=== PATIENT | female | born 1980 | race Caucasian/White ===

== ENCOUNTER 2016-05-20 18:07 | Inpatient (IN) | payer OTHER ==
[~2016-05-20] VITALS: Ht 154.9 cm; Wt 67.9 kg
[~2016-05-20 18:07] MED LIST: ADVIL200 M1 PO; AMITRIPTYLINE H75 MG PO; ATARAX,VISTARIL25 MG PO; Ambien PO; BACTRIM,SEPT1 TABLET PO; BACTROBAN NASAL1 G1 BOTH NARES; BENADRYL50 MG PO; CALCIUM500 M4 PO; CHANTIX; CHANTIX1 MG PO; CIPRO500 MG PO; CIPROFLOXACIN H10 ML BOTH EYES; DOXYCYCLINE HY100 MG PO; EFFEXOR37.5 MG PO; ENDOCET 5-3251 EACH PO; FIORICET,ESG1 TABLET PO; KEFLEX500 MG PO; MACROBID100 MG PO; METHADONE10 MG PO; MOBIC7.5 MG PO; MORPHINE SULFAT30 M2 PO; OXAYDO5 MG PO; PANTOPRAZOLE SO40 MG PO; PEPCID20 MG PO; PERCOCET 10/1 TABLET PO; PERCOCET 5/31 TABLET PO; PROMETHAZINE HC25 M1 PO; PYRIDIUM200 MG PO; SALINE FOR SEN MC; VIBRAMYCIN100 MG PO; ZOFRAN4 MG PO
[2016-05-20 19:45] LABS: HEMATOCRIT 38.5 % (36.0-46.0); MCH 30.8 PG (29.0-34.0); MCHC 33.5 G/DL (30.0-36.0); MCV 91.9 FL (83-99); MEAN PLAT.VOLUME 9.8 uM^3 (9.5-12.4); PLATELET COUNT 239 K/uL (156-360); RBC DIS.WIDTH-CV 12.6 % (11.8-14.6); RBC DIS.WIDTH-SD 41.9 % (39-53); RED BLOOD COUNT 4.19 M/uL (3.80-5.20); WHITE BLOOD COUNT 5.8 K/uL (4.1-10.2)
[2016-05-20 19:56] LABS: CHLORIDE 104 mEq/L (99-109); POTASSIUM 3.9 mEq/L (3.7-5.4); SODIUM 138 mEq/L (136-147)
[2016-05-20 19:58] LABS: GLUCOSE 101 mg/dL (70-99)
[2016-05-20 19:59] LABS: ANION GAP 7 MEQ/L (2-14)
[2016-05-20 20:00] LABS: TOTAL BILIRUBIN 0.2 mg/dL (0.0-1.0)
[2016-05-20 20:01] LABS: SERUM ETHYL ALCOHOL < 10 mg/dL
[2016-05-20 20:02] LABS: ALKALINE PHOSPHATASE 73 IU/L (3-129); GFR ESTIMATE (CALCULATED) > 59 mL/min/
[2016-05-20 20:03] LABS: UREA NITROGEN (BUN) 12 mg/dL (9-23)
[2016-05-20 20:25] LABS: ADD MIUA? NO; BILIRUBIN NEGATIVE; BLOOD NEGATIVE; COLOR YELLOW ((YELLOW)); GLUCOSE (STRIP) NEGATIVE; KETONES NEGATIVE; LEUKOCYTES NEGATIVE; NITRITE NEGATIVE; PROTEIN (STRIP) 30; SPECIFIC GRAVITY 1.023 (1.000-1.030); UROBILINOGEN 0.2 MG/DL (0.2-1.0)
[2016-05-20 20:42] LABS: AMPHETAMINE NEGATIVE (500 ng/mL); BARBITURATES NEGATIVE (200 ng/mL); BENZODIAZEPINES NEGATIVE (150 ng/mL); COCAINE NEGATIVE (150 ng/mL); INTERNAL CONTROLS VALID? YES; METHADONE NEGATIVE (200 ng/mL); METHAMPHETAMINE NEGATIVE (500 ng/mL); OPIATES (MORPHINE) PRESUMPTIVE POSITIVE (100 ng/mL); OXYCODONE PRESUMPTIVE POSITIVE (100 ng/mL); PHENCYCLIDINE NEGATIVE (25 ng/mL); PROPOXYPHENE NEGATIVE (300 ng/mL); THC CANNABINOIDS NEGATIVE (50 ng/mL); TRICYCLIC ANTIDEPRESSANTS NEGATIVE (300 ng/mL)
[2016-05-20 20:43] LABS: ADD MEDTOX COMMENT Y
[2016-05-20 21:40] VITALS: BP 141/60
[2016-05-20 21:42] VITALS: BP 141/60
[2016-05-21] MEDS ORDERED: KADIAN60 MG PO (04:19)
[2016-05-21] MEDS ORDERED: OXYCODONE HCL E30 MG PO (04:22)
[2016-05-21] MEDS ORDERED: NEURONTIN600 MG PO (04:23)
[2016-05-21 08:07] VITALS: BP 109/55
[2016-05-21 15:55] VITALS: BP 116/66
[2016-05-22 08:17] VITALS: BP 106/55
[2016-05-22 15:32] VITALS: BP 103/57
[2016-05-23 07:47] VITALS: BP 106/58
[2016-05-23] MEDS ORDERED: DULOXETINE HCL30 MG PO (09:38)
== END 2016-05-23 10:41 | disposition home or self-care (01) | DRG 885 ==
LOC: EME 18:07 → 1WEST 20:53 → EDOF 20:53 → 1WEST 21:32
PROVIDERS: Emergency Medicine
DX: F33.9 Major depressive disorder, recurrent, unspecified (principal); R45.851 Suicidal ideations; F60.9 Personality disorder, unspecified; G89.29 Other chronic pain; M48.00 Spinal stenosis, site unspecified; M19.90 Unspecified osteoarthritis, unspecified site; M47.9 Spondylosis, unspecified; M79.7 Fibromyalgia; N80.9 Endometriosis, unspecified; F17.210 Nicotine dependence, cigarettes, uncomplicated; Z91.5 Personal history of self-harm; Z86.74 Personal history of sudden cardiac arrest; Z88.0 Allergy status to penicillin; Z88.2 Allergy status to sulfonamides
CPT/HCPCS: 80053; 81003; 84999; 85027; 90839; 97165 GO; 99281; 99285; G0480; Q0177

== ENCOUNTER 2016-07-30 14:28 | Emergency (ER) | payer OTHER ==
[~2016-07-30] VITALS: Ht 154.9 cm; Wt 58.1 kg
[~2016-07-30 14:28] MED LIST changes: +DULOXETINE HCL30 MG PO; +KADIAN60 MG PO; +NEURONTIN600 MG PO; +OXYCODONE HCL E30 MG PO
[2016-07-30 15:46] LABS: HEMATOCRIT 43.2 % (36.0-46.0); MCH 30.9 PG (29.0-34.0); MCHC 34.5 G/DL (30.0-36.0); MCV 89.6 FL (83-99); MEAN PLAT.VOLUME 11.6 uM^3 (9.5-12.4); PLATELET COUNT 131 K/uL (156-360); RBC DIS.WIDTH-CV 12.6 % (11.8-14.6); RBC DIS.WIDTH-SD 41.3 % (39-53); RED BLOOD COUNT 4.82 M/uL (3.80-5.20); WHITE BLOOD COUNT 17.8 K/uL (4.1-10.2)
[2016-07-30 15:55] LABS: CHLORIDE 106 mEq/L (99-109); POTASSIUM 3.8 mEq/L (3.7-5.4); SODIUM 138 mEq/L (136-147)
[2016-07-30 15:57] LABS: GLUCOSE 103 mg/dL (70-99)
[2016-07-30 15:59] LABS: ANION GAP 13 MEQ/L (2-14); TOTAL BILIRUBIN 0.4 mg/dL (0.0-1.0)
[2016-07-30 16:01] LABS: ALKALINE PHOSPHATASE 55 IU/L (3-129); GFR ESTIMATE (CALCULATED) > 59 mL/min/
[2016-07-30 16:02] LABS: UREA NITROGEN (BUN) 21 mg/dL (9-23)
[2016-07-30 16:03] LABS: DIRECT BILIRUBIN 0.1 mg/dL (0.0-0.3)
[2016-07-30 16:04] LABS: LIPASE 26 U/L (1.0-51.0)
[2016-07-30 16:12] LABS: QUANTITATIVE HCG < 4.0 MIU/ML
[2016-07-30] MEDS ORDERED: ZANTAC150 MG PO (19:12)
[2016-07-30] MEDS ORDERED: PERCOCET 5/31 TABLET PO (19:12)
[2016-07-30 19:30] VITALS: BP 90/50
== END 2016-07-30 19:32 | disposition home or self-care (01) ==
LOC: EME 14:28
PROVIDERS: Emergency Medicine
DX: R10.13 Epigastric pain (principal); D69.6 Thrombocytopenia, unspecified; D72.829 Elevated white blood cell count, unspecified; E83.52 Hypercalcemia; M79.7 Fibromyalgia; F17.200 Nicotine dependence, unspecified, uncomplicated
CPT/HCPCS: 74177; 80048; 80076; 83690; 84702; 85027; 99281; 99285; J2405; J3010; J7030

== ENCOUNTER 2016-08-04 17:42 | Emergency (ER) | payer OTHER ==
[~2016-08-04] VITALS: Ht 157.5 cm; Wt 64.0 kg
[~2016-08-04 17:42] MED LIST changes: +ZANTAC150 MG PO
[2016-08-04 18:23] LABS: CHLORIDE 112 mEq/L (99-109); SODIUM 144 mEq/L (136-147)
[2016-08-04 18:24] LABS: GLUCOSE 93 mg/dL (70-99)
[2016-08-04 18:25] LABS: HEMATOCRIT 44.7 % (36.0-46.0); MCH 30.5 PG (29.0-34.0); MCHC 33.8 G/DL (30.0-36.0); MCV 90.3 FL (83-99); RBC DIS.WIDTH-CV 12.8 % (11.8-14.6); RBC DIS.WIDTH-SD 42.2 % (39-53); RED BLOOD COUNT 4.95 M/uL (3.80-5.20)
[2016-08-04 18:26] LABS: ANION GAP 10 MEQ/L (2-14); MEAN PLAT.VOLUME 9.4 uM^3 (9.5-12.4); PLATELET COUNT 335 K/uL (156-360); WHITE BLOOD COUNT 9.5 K/uL (4.1-10.2)
[2016-08-04 18:27] LABS: POTASSIUM 4.9 mEq/L (3.7-5.4)
[2016-08-04 18:28] LABS: GFR ESTIMATE (CALCULATED) > 59 mL/min/
[2016-08-04 18:29] LABS: UREA NITROGEN (BUN) 13 mg/dL (9-23)
[2016-08-04 18:43] LABS: QUANTITATIVE HCG < 4.0 MIU/ML
[2016-08-04] MEDS ORDERED: PERCOCET 5/31 TABLET PO (20:35)
[2016-08-04 20:58] VITALS: BP 107/73
== END 2016-08-04 21:00 | disposition home or self-care (01) ==
LOC: EME 17:42
PROVIDERS: Emergency Medicine
DX: R07.89 Other chest pain (principal); R51 Headache; F17.200 Nicotine dependence, unspecified, uncomplicated; Y04.2XXA Assault by strike against or bumped into by another person, initial encounter; Y07.03 Male partner, perpetrator of maltreatment and neglect
CPT/HCPCS: 70450; 70486; 70498; 71020; 80048; 84702; 85027; 99281; 99285

== ENCOUNTER 2016-08-10 12:50 | Emergency (ER) | payer OTHER ==
[~2016-08-10] VITALS: Ht 154.9 cm; Wt 65.2 kg
[2016-08-10 13:22] VITALS: BP 161/87
[2016-08-10] MEDS ORDERED: INDOCIN50 MG PO (21:13)
[2016-08-10] MEDS ORDERED: LIDOCAINE20 MG/1 M5 PO (21:13)
[2016-08-10] MEDS ORDERED: PREDNISONE20 MG PO (21:13)
[2016-08-10] MEDS ORDERED: CLINDAMYCIN HC300 MG PO (21:13)
== END 2016-08-10 15:19 | disposition left against medical advice (07) ==
LOC: EME 12:50
PROC: 3E0T3BZ Introduction of Anesthetic Agent into Peripheral Nerves and Plexi, Percutaneous Approach (ICD-10-PCS; principal; 2016-08-10)
DX: S02.5XXA Fracture of tooth (traumatic), initial encounter for closed fracture (principal); K02.9 Dental caries, unspecified; F17.200 Nicotine dependence, unspecified, uncomplicated
CPT/HCPCS: 99281; 99283

== ENCOUNTER 2016-08-10 18:25 | Emergency (ER) | payer OTHER ==
[~2016-08-10] VITALS: Ht 154.9 cm; Wt 59.0 kg
[2016-08-10] MEDS ORDERED: INDOCIN50 MG PO (21:13)
[2016-08-10] MEDS ORDERED: PREDNISONE20 MG PO (21:13)
[2016-08-10] MEDS ORDERED: CLINDAMYCIN HC300 MG PO (21:13)
[2016-08-10] MEDS ORDERED: LIDOCAINE20 MG/1 M5 PO (21:13)
[2016-08-10 21:38] VITALS: BP 93/70
== END 2016-08-10 21:39 | disposition home or self-care (01) ==
LOC: EME 18:25
DX: K02.9 Dental caries, unspecified (principal); F17.200 Nicotine dependence, unspecified, uncomplicated
CPT/HCPCS: 99281; 99283; J1885; J7512

== ENCOUNTER 2016-08-20 19:20 | Emergency (ER) | payer OTHER ==
[~2016-08-20] VITALS: Ht 154.9 cm; Wt 61.3 kg
[~2016-08-20 19:20] MED LIST changes: +CLINDAMYCIN HC300 MG PO; +INDOCIN50 MG PO; +LIDOCAINE20 MG/1 M5 PO; +PREDNISONE20 MG PO
[2016-08-20] MEDS ORDERED: ULTRAM50 MG PO (19:42)
[2016-08-20 20:09] VITALS: BP 95/55
== END 2016-08-20 20:10 | disposition home or self-care (01) ==
LOC: EME 19:20
DX: K02.9 Dental caries, unspecified (principal); R51 Headache; F32.9 Major depressive disorder, single episode, unspecified; M79.7 Fibromyalgia; F17.200 Nicotine dependence, unspecified, uncomplicated
CPT/HCPCS: 99281; 99283

== ENCOUNTER 2016-08-22 00:10 | Emergency (ER) | payer OTHER ==
[~2016-08-22] VITALS: Ht 157.5 cm; Wt 67.0 kg
[~2016-08-22 00:10] MED LIST changes: +ULTRAM50 MG PO
[2016-08-22] MEDS ORDERED: ULTRAM50 MG PO (01:26)
[2016-08-22 01:40] VITALS: BP 113/76
== END 2016-08-22 01:41 | disposition home or self-care (01) ==
LOC: EXP 00:10 → EME 00:10 → EXP 01:41
PROC: 3E0T3BZ Introduction of Anesthetic Agent into Peripheral Nerves and Plexi, Percutaneous Approach (ICD-10-PCS; principal; 2016-08-22)
DX: K08.89 Other specified disorders of teeth and supporting structures (principal); Z87.891 Personal history of nicotine dependence
CPT/HCPCS: 99281; 99283

== ENCOUNTER 2016-09-29 11:16 | Emergency (ER) | payer OTHER ==
[~2016-09-29] VITALS: Ht 162.6 cm; Wt 60.1 kg
[2016-09-29 11:43] VITALS: BP 115/71
[2016-09-29] MEDS ORDERED: MOTRIN800 MG PO (13:38)
== END 2016-09-29 14:39 | disposition home or self-care (01) ==
LOC: EME 11:16
DX: S63.502A Unspecified sprain of left wrist, initial encounter (principal); W20.8XXA Other cause of strike by thrown, projected or falling object, initial encounter; Z88.2 Allergy status to sulfonamides; Z88.0 Allergy status to penicillin
CPT/HCPCS: 73090; 73110; 99281; 99284

== ENCOUNTER 2016-11-03 14:04 | Emergency (ER) | payer OTHER ==
[~2016-11-03] VITALS: Ht 154.9 cm; Wt 60.2 kg
[~2016-11-03 14:04] MED LIST changes: +MOTRIN800 MG PO
[2016-11-03 16:17] LABS: EOSINOPHIL (%) 0.5 % (0-5); EOSINOPHIL COUNT 0.1 K/uL (0-0.3); HEMATOCRIT 40.1 % (36.0-46.0); IMMATURE GRANULOCYTE (%) 0.4 % (0.0-0.7); IMMATURE GRANULOCYTE COUNT 0.1 K/uL; INSTRUMENT ABS NEUTROPHIL CT 13.8 K/uL; LYMPHOCYTE COUNT 1.1 K/uL (1.0-2.8); MCH 31.6 PG (29.0-34.0); MCHC 34.9 G/DL (30.0-36.0); MCV 90.5 FL (83-99); MEAN PLAT.VOLUME 9.8 uM^3 (9.5-12.4); MONOCYTE (%) 5.3 % (3-12); MONOCYTE COUNT 0.8 K/uL (0-0.8); NEUTROPHIL COUNT 13.8 K/uL (1.8-6.4); PLATELET COUNT 291 K/uL (156-360); RBC DIS.WIDTH-CV 12.3 % (11.8-14.6); RBC DIS.WIDTH-SD 40.6 % (39-53); RED BLOOD COUNT 4.43 M/uL (3.80-5.20); WHITE BLOOD COUNT 15.9 K/uL (4.1-10.2)
[2016-11-03 16:27] LABS: CHLORIDE 113 mEq/L (99-109); POTASSIUM 3.7 mEq/L (3.7-5.4); SODIUM 143 mEq/L (136-147)
[2016-11-03 16:29] LABS: GLUCOSE 91 mg/dL (70-99)
[2016-11-03 16:31] LABS: ANION GAP 8 MEQ/L (2-14); TOTAL BILIRUBIN 0.7 mg/dL (0.0-1.0)
[2016-11-03 16:33] LABS: ALKALINE PHOSPHATASE 61 IU/L (3-129); GFR ESTIMATE (CALCULATED) > 59 mL/min/
[2016-11-03 16:34] LABS: UREA NITROGEN (BUN) 12 mg/dL (9-23)
[2016-11-03 16:36] LABS: LIPASE 46 U/L (1.0-51.0)
[2016-11-03 19:08] LABS: ADD MIUA? NO; BILIRUBIN NEGATIVE; BLOOD NEGATIVE; COLOR YELLOW ((YELLOW)); GLUCOSE (STRIP) NEGATIVE; KETONES NEGATIVE; LEUKOCYTES NEGATIVE; NITRITE NEGATIVE; PROTEIN (STRIP) NEGATIVE; UCUL ADDED? NO; UROBILINOGEN 0.2 MG/DL (0.2-1.0)
[2016-11-03] MEDS ORDERED: ZOFRAN ODT4 MG PO (19:08)
[2016-11-03 19:13] LABS: INTERNAL CONTROL VALID? YES
[2016-11-03 19:22] VITALS: BP 95/53
[2016-11-03 19:26] LABS: SPECIFIC GRAVITY 1.088 (1.000-1.030)
== END 2016-11-03 19:34 | disposition home or self-care (01) ==
LOC: EME 14:04
PROVIDERS: Physician Assistant Medical
DX: R10.13 Epigastric pain (principal); M79.7 Fibromyalgia; Z87.891 Personal history of nicotine dependence; Z86.74 Personal history of sudden cardiac arrest
CPT/HCPCS: 74177; 80053; 81003; 83605; 83690; 84703; 85025; 87040; 99281; 99285; J2270; J2405; J2765; J7040

== ENCOUNTER 2016-12-08 00:22 | Emergency (ER) | payer OTHER ==
[~2016-12-08] VITALS: Ht 154.9 cm; Wt 63.9 kg
[~2016-12-08 00:22] MED LIST changes: +ZOFRAN ODT4 MG PO
[2016-12-08 00:25] VITALS: BP 122/93
[2016-12-08] MEDS ORDERED: ULTRAM50 MG PO (02:27)
== END 2016-12-08 03:02 | disposition home or self-care (01) ==
LOC: EME 00:22
PROC: 3E0T3BZ Introduction of Anesthetic Agent into Peripheral Nerves and Plexi, Percutaneous Approach (ICD-10-PCS; principal; 2016-12-08)
DX: K02.9 Dental caries, unspecified (principal); F17.200 Nicotine dependence, unspecified, uncomplicated
CPT/HCPCS: 99281; 99284

== ENCOUNTER 2017-01-30 21:39 | Emergency (ER) | payer OTHER ==
[~2017-01-30] VITALS: Ht 154.9 cm; Wt 66.0 kg
[2017-01-30 21:43] VITALS: BP 124/73
== END 2017-01-31 00:35 | disposition left against medical advice (07) ==
LOC: EME 21:39
DX: M54.5 Low back pain (principal); Z53.21 Procedure and treatment not carried out due to patient leaving prior to being seen by health care provider
CPT/HCPCS: 72100; 99281; 99283

== ENCOUNTER 2017-07-03 21:43 | Emergency (ER) | payer OTHER ==
[~2017-07-03] VITALS: Ht 154.9 cm; Wt 66.1 kg
[2017-07-03 23:06] LABS: HEMATOCRIT 35.6 % (36.0-46.0); HEMOGLOBIN 12.6 G/DL (11.9-15.5); MCH 32.3 PG (29.0-34.0); MCHC 35.4 G/DL (30.0-36.0); MCV 91.3 FL (83-99); PLATELET COUNT 288 K/uL (156-360); RBC DIS.WIDTH-CV 12.3 % (11.8-14.6); WHITE BLOOD COUNT 9.7 K/uL (4.1-10.2)
[2017-07-03 23:21] LABS: CHLORIDE 108 mEq/L (99-109); SODIUM 141 mEq/L (136-147)
[2017-07-03 23:23] LABS: GLUCOSE 93 mg/dL (70-99)
[2017-07-03 23:26] LABS: SERUM ETHYL ALCOHOL < 10 mg/dL
[2017-07-03 23:27] LABS: CREATININE 0.8 mg/dL (0.6-1.3); GFR ESTIMATE (CALCULATED) > 59 mL/min/
[2017-07-03 23:29] LABS: UREA NITROGEN (BUN) 14 mg/dL (9-23)
[2017-07-03 23:30] LABS: ACETAMINOPHEN (TYLENOL) < 10 mcg/mL (10-30); SALICYLATE < 5.0 MG/DL (15-30)
[2017-07-03 23:37] LABS: QUANTITATIVE HCG < 4.0 MIU/ML
[2017-07-04 06:24] LABS: APPEARANCE SL.HAZY ((CLEAR)); BILIRUBIN NEGATIVE; BLOOD NEGATIVE; COLOR YELLOW ((YELLOW)); GLUCOSE (STRIP) NEGATIVE; KETONES NEGATIVE; LEUKOCYTES NEGATIVE; NITRITE NEGATIVE; PROTEIN (STRIP) NEGATIVE
[2017-07-04 06:30] LABS: BACTERIA 1+ /HPF; EPITHELIAL CELLS 1+ /HPF; HYALINE CASTS 20-30 /LPF; MUCUS 2+ /LPF; RED BLOOD CELLS 0-5 /HPF (0-5); UCUL ADDED? NO; WHITE BLOOD CELLS 0-5 /HPF (0-5)
[2017-07-04 06:42] LABS: AMPHETAMINE NEGATIVE (500 ng/mL); BARBITURATES PRESUMPTIVE POSITIVE (200 ng/mL); BENZODIAZEPINES NEGATIVE (150 ng/mL); COCAINE NEGATIVE (150 ng/mL); METHADONE NEGATIVE (200 ng/mL); METHAMPHETAMINE NEGATIVE (500 ng/mL); OPIATES (MORPHINE) PRESUMPTIVE POSITIVE (100 ng/mL); OXYCODONE PRESUMPTIVE POSITIVE (100 ng/mL); PHENCYCLIDINE NEGATIVE (25 ng/mL); THC CANNABINOIDS NEGATIVE (50 ng/mL); TRICYCLIC ANTIDEPRESSANTS NEGATIVE (300 ng/mL)
[2017-07-04 06:43] LABS: BUPRENORPHINE NEGATIVE (10 ng/mL); PROPOXYPHENE NEGATIVE (300 ng/mL)
[2017-07-04 17:47] VITALS: BP 110/67
== END 2017-07-04 18:25 ==
LOC: EME 21:43
PROVIDERS: Emergency Medicine
DX: F33.2 Major depressive disorder, recurrent severe without psychotic features (principal); R45.851 Suicidal ideations; F60.9 Personality disorder, unspecified; M79.7 Fibromyalgia; F41.9 Anxiety disorder, unspecified; Z59.0 Homelessness; Z87.891 Personal history of nicotine dependence; Z88.2 Allergy status to sulfonamides; Z88.0 Allergy status to penicillin
CPT/HCPCS: 80048; 81003; 84702; 84999; 85027; 90837; 99281; 99285; G0480

== ENCOUNTER 2017-10-11 05:40 | Emergency (ER) | payer OTHER ==
[~2017-10-11] VITALS: Ht 157.5 cm; Wt 59.1 kg
[2017-10-11 06:40] LABS: APPEARANCE SL.HAZY ((CLEAR)); BILIRUBIN NEGATIVE; BLOOD NEGATIVE; COLOR YELLOW ((YELLOW)); GLUCOSE (STRIP) NEGATIVE; KETONES NEGATIVE; LEUKOCYTES SMALL; NITRITE NEGATIVE; PROTEIN (STRIP) 30; SPECIFIC GRAVITY 1.014 (1.000-1.030); UROBILINOGEN 0.2 MG/DL (0.2-1.0)
[2017-10-11 06:44] LABS: BACTERIA NONE SEEN /HPF; EPITHELIAL CELLS 1+ /HPF; MUCUS TRACE /LPF; RED BLOOD CELLS 0-5 /HPF (0-5); UCUL ADDED? YES; WHITE BLOOD CELLS 20-30 /HPF (0-5)
[2017-10-11 06:50] LABS: AMPHETAMINE PRESUMPTIVE POSITIVE (500 ng/mL); BARBITURATES NEGATIVE (200 ng/mL); BENZODIAZEPINES NEGATIVE (150 ng/mL); BUPRENORPHINE NEGATIVE (10 ng/mL); COCAINE PRESUMPTIVE POSITIVE (150 ng/mL); METHADONE NEGATIVE (200 ng/mL); METHAMPHETAMINE NEGATIVE (500 ng/mL); OPIATES (MORPHINE) PRESUMPTIVE POSITIVE (100 ng/mL); OXYCODONE NEGATIVE (100 ng/mL); PHENCYCLIDINE NEGATIVE (25 ng/mL); PROPOXYPHENE NEGATIVE (300 ng/mL); THC CANNABINOIDS NEGATIVE (50 ng/mL); TRICYCLIC ANTIDEPRESSANTS NEGATIVE (300 ng/mL)
[2017-10-11 06:58] LABS: HEMATOCRIT 35.6 % (36.0-46.0); HEMOGLOBIN 12.3 G/DL (11.9-15.5); MCHC 34.6 G/DL (30.0-36.0); MCV 89.7 FL (83-99); PLATELET COUNT 306 K/uL (156-360); RBC DIS.WIDTH-CV 12.5 % (11.8-14.6); RBC DIS.WIDTH-SD 41.2 % (39-53); RED BLOOD COUNT 3.97 M/uL (3.80-5.20); WHITE BLOOD COUNT 9.6 K/uL (4.1-10.2)
[2017-10-11 07:28] LABS: CHLORIDE 106 MEQ/L (99-109); CREATININE 1.2 MG/DL (0.6-1.3); GFR ESTIMATE (CALCULATED) 54 mL/min/; GLUCOSE 104 mg/dL (70-99); POTASSIUM 3.7 MEQ/L (3.7-5.4); SODIUM 138 MEQ/L (136-147); UREA NITROGEN (BUN) 13 mg/dL (9-23)
[2017-10-11 07:46] LABS: SERUM ETHYL ALCOHOL < 10 mg/dL
[2017-10-11 09:01] VITALS: BP 110/68
== END 2017-10-11 09:08 | disposition home or self-care (01) ==
LOC: EME 05:40
PROVIDERS: Emergency Medicine
DX: F33.1 Major depressive disorder, recurrent, moderate (principal); S51.812A Laceration without foreign body of left forearm, initial encounter; X58.XXXA Exposure to other specified factors, initial encounter; F19.10 Other psychoactive substance abuse, uncomplicated; F41.9 Anxiety disorder, unspecified; M79.7 Fibromyalgia; Z87.891 Personal history of nicotine dependence; Z86.74 Personal history of sudden cardiac arrest; Z88.0 Allergy status to penicillin; Z88.2 Allergy status to sulfonamides; Z88.8 Allergy status to other drugs, medicaments and biological substances
CPT/HCPCS: 80048; 81003; 81025; 84999; 85027; 87086; 90837; 99281; 99285; G0480

== ENCOUNTER 2017-10-31 07:10 | Emergency (ER) | payer OTHER ==
[~2017-10-31] VITALS: Ht 154.9 cm; Wt 62.7 kg
[2017-10-31 12:44] VITALS: BP 99/67
== END 2017-10-31 13:01 | disposition home or self-care (01) ==
LOC: EME 07:10
DX: M51.26 Other intervertebral disc displacement, lumbar region (principal); M79.7 Fibromyalgia; Z88.0 Allergy status to penicillin; Z88.2 Allergy status to sulfonamides
CPT/HCPCS: 72148; 99281; 99284; J1885; J2270

== ENCOUNTER 2017-11-02 22:53 | Inpatient (IN) | payer OTHER ==
[~2017-11-02] VITALS: Ht 154.9 cm; Wt 62.9 kg
[2017-11-02 23:32] LABS: HEMOGLOBIN 12.8 G/DL (11.9-15.5); MCH 30.7 PG (29.0-34.0); MCHC 33.7 G/DL (30.0-36.0); MCV 91.1 FL (83-99); PLATELET COUNT 298 K/uL (156-360); RBC DIS.WIDTH-CV 12.8 % (11.8-14.6); RBC DIS.WIDTH-SD 42.4 % (39-53); RED BLOOD COUNT 4.17 M/uL (3.80-5.20); WHITE BLOOD COUNT 11.7 K/uL (4.1-10.2)
[2017-11-02 23:34] LABS: APPEARANCE CLEAR ((CLEAR)); BILIRUBIN NEGATIVE; BLOOD MODERATE; COLOR YELLOW ((YELLOW)); GLUCOSE (STRIP) NEGATIVE; KETONES 5; LEUKOCYTES TRACE; NITRITE NEGATIVE; PROTEIN (STRIP) 30
[2017-11-02 23:42] LABS: CHLORIDE 109 mEq/L (99-109); POTASSIUM 3.7 mEq/L (3.7-5.4); SODIUM 144 mEq/L (136-147)
[2017-11-02 23:44] LABS: GLUCOSE 111 mg/dL (70-99)
[2017-11-02 23:45] LABS: AMPHETAMINE NEGATIVE (500 ng/mL); BACTERIA NONE SEEN /HPF; BARBITURATES NEGATIVE (200 ng/mL); BENZODIAZEPINES NEGATIVE (150 ng/mL); BUPRENORPHINE NEGATIVE (10 ng/mL); COCAINE PRESUMPTIVE POSITIVE (150 ng/mL); EPITHELIAL CELLS RARE /HPF; METHADONE NEGATIVE (200 ng/mL); METHAMPHETAMINE NEGATIVE (500 ng/mL); MUCUS TRACE /LPF; OPIATES (MORPHINE) PRESUMPTIVE POSITIVE (100 ng/mL); OXYCODONE PRESUMPTIVE POSITIVE (100 ng/mL); PHENCYCLIDINE NEGATIVE (25 ng/mL); PROPOXYPHENE NEGATIVE (300 ng/mL); THC CANNABINOIDS NEGATIVE (50 ng/mL); TRICYCLIC ANTIDEPRESSANTS NEGATIVE (300 ng/mL); UCUL ADDED? YES
[2017-11-02 23:47] LABS: SERUM ETHYL ALCOHOL < 10 mg/dL
[2017-11-02 23:48] LABS: GFR ESTIMATE (CALCULATED) > 59 mL/min/; UREA NITROGEN (BUN) 15 mg/dL (9-23)
[2017-11-02 23:56] LABS: QUANTITATIVE HCG < 4.0 MIU/ML
[2017-11-03] MEDS ORDERED: OXYCODONE HCL15 MG PO (01:41)
[2017-11-03] MEDS ORDERED: OXYMORPHONE HCL10 M1 PO (01:44)
[2017-11-03] MEDS ORDERED: CYMBALTA60 MG PO (01:47)
[2017-11-03] MEDS ORDERED: MOTRIN800 MG PO (01:53)
[2017-11-03] MEDS ORDERED: CONCERTA36 MG PO (01:55)
[2017-11-03 02:29] VITALS: BP 102/51
[2017-11-03 08:07] VITALS: BP 89/52
[2017-11-03 16:23] VITALS: BP 99/56
[2017-11-04 08:05] VITALS: BP 91/55
[2017-11-04 17:11] VITALS: BP 97/52
[2017-11-05 07:34] VITALS: BP 98/54
[2017-11-05] MEDS ORDERED: CYMBALTA60 MG PO (08:37)
[2017-11-05] MEDS ORDERED: CYMBALTA30 MG PO (08:37)
== END 2017-11-05 10:31 | disposition home or self-care (01) | DRG 882 ==
LOC: EME 22:53 → EDOF 11-03 00:23 → 1WEST 11-03 00:23 → ENRESERV 11-03 01:24 → 1WEST 11-03 01:28
PROVIDERS: Emergency Medicine
DX: F43.12 Post-traumatic stress disorder, chronic (principal); F33.2 Major depressive disorder, recurrent severe without psychotic features; R45.851 Suicidal ideations; G47.00 Insomnia, unspecified; F17.200 Nicotine dependence, unspecified, uncomplicated; F60.3 Borderline personality disorder; Z95.1 Presence of aortocoronary bypass graft; Z95.0 Presence of cardiac pacemaker; Z86.73 Personal history of transient ischemic attack (TIA), and cerebral infarction without residual deficits
CPT/HCPCS: 80048; 81003; 84702; 84999; 85027; 87086; 90839; 99281; 99285; G0480